=== PATIENT | female | born 1935 | race Hispanic/Latino ===

== ENCOUNTER 2018-05-30 13:11 | Emergency (ER) | payer MEDICARE ==
[~2018-05-30 13:11] MED LIST: AMLO10TA7 PO; DONE10TA36 PO; GABA-529 PO; HUM10VIA6 SQ; HYDR-4154 PO; LEVO137T2 PO; LOSA100T58 PO; PRAV20TA4 PO; PRED5TAB44 PO; SERT25TA5 PO; TRAM-355 PO
[2018-05-30] MEDS ORDERED: TETANUS/DIPHTHERIA TOXOID [ADULT] 0.5 ML VIAL IM ONE (15:41)
== END 2018-05-30 16:19 | disposition home or self-care (01) ==
LOC: EDH 13:11
DX: S61.511A Laceration without foreign body of right wrist, initial encounter (principal); S81.812A Laceration without foreign body, left lower leg, initial encounter; E11.9 Type 2 diabetes mellitus without complications; E78.5 Hyperlipidemia, unspecified; I10 Essential (primary) hypertension; Z79.4 Long term (current) use of insulin; W18.39XA Other fall on same level, initial encounter; Y93.01 Activity, walking, marching and hiking; Y92.098 Other place in other non-institutional residence as the place of occurrence of the external cause; Y99.8 Other external cause status
CPT/HCPCS: 90471; 90714

== ENCOUNTER 2018-11-07 10:52 | Inpatient (IN) | payer MEDICARE ==
[~2018-11-07] VITALS: Ht 162.6 cm; Wt 63.0 kg
[2018-11-07] MEDS ORDERED: SODIUM CHLORIDE 0.9% 1000ML 1,000 ML IV ONE (11:25)
[2018-11-07] MEDS ORDERED: VANCOMYCIN 1GM+NS 250ML 250 ML IV ONE (11:25)
[2018-11-07 11:43] LABS: BASOPHILS % (AUTO) 1.2 % (0.0-5.0); EOSINOPHILS % (AUTO) 5.7 % (0.0-8.0); HEMATOCRIT 24.3 % (36-48); LYMPHOCYTES % (AUTO) 29.7 % (21.0-51.0); MEAN CORPUSCULAR HEMOGLOBIN 30.9 pg (27.0-33.0); MEAN CORPUSCULAR HGB CONC 33.7 g/dL (32.0-36.0); MEAN CORPUSCULAR VOLUME 91.7 fL (79-99); MONOCYTES % (AUTO) 8.1 % (3.0-13.0); NEUTROPHILS % (AUTO) 55.3 % (40.0-77.0); PLATELET COUNT (AUTO) 162 K/uL (130-400); RED BLOOD CELL COUNT(AUTO) 2.65 MIL/uL (4.00-5.50); RED CELL DISTRIBUTION WIDTH 14.4 % (11.0-15.5); WHITE BLOOD COUNT (AUTO) 4.2 K/uL (4.8-10.8)
[2018-11-07 11:52] LABS: CREATININE 3.9 mg/dL (0.5-1.5); POTASSIUM 4.6 mmol/L (3.5-5.1)
[2018-11-07 11:57] LABS: ALBUMIN 2.9 g/dL (3.5-5.0); BILIRUBIN,TOTAL 0.2 mg/dL (0.2-1.0); TOTAL PROTEIN, SERUM 6.1 g/dL (6.0-8.3)
[2018-11-07] MEDS ORDERED: SODIUM CHLORIDE 0.9% 1000ML 1,000 ML IV SCH ×2 (12:15→16:15)
[2018-11-07] MEDS ORDERED: FERR325T29 PO (15:24)
[2018-11-07] MEDS ORDERED: HYDR-4457 PO (15:44)
[2018-11-07] MEDS ORDERED: CYAN250014 PO (15:44)
[2018-11-07] MEDS ORDERED: DICL2100G TP (15:44)
[2018-11-07] MEDS ORDERED: OMEG-62 PO (15:44)
[2018-11-07] MEDS ORDERED: MV-M1TAB46 PO (15:44)
[2018-11-07] MEDS ORDERED: COMB5OS OU (15:54)
[2018-11-07] MEDS ORDERED: BIMA12.5OS OD (15:54)
[2018-11-07] MEDS ORDERED: DORZ10DR19 OS (15:54)
[2018-11-07 16:00] VITALS: BP 163/63
[2018-11-07] MEDS ORDERED: NITROGLYCERIN 0.4 MG SL TAB SL PRN (16:15)
[2018-11-07] MEDS ORDERED: DiphenhydrAMINE HCL 50 MG/ML VIAL IVP PRN (16:15)
[2018-11-07] MEDS ORDERED: DEXTROSE 50%-WATER 50 ML DISP.SYRIN IV PRN (16:15)
[2018-11-07] MEDS ORDERED: DIPHENHYDRAMINE HCL 25 MG CAPSULE PO PRN (16:15)
[2018-11-07] MEDS ORDERED: POTASSIUM CHLORIDE 10% ELIXIR 20 MEQ/15 ML UDCUP PO PRN (16:15)
[2018-11-07] MEDS ORDERED: LACTULOSE 20 GM/30 ML UDCUP PO PRN (16:15)
[2018-11-07] MEDS ORDERED: GLUCAGON 1MG KIT 1 MG ML IM PRN (16:15)
[2018-11-07] MEDS ORDERED: IPRATROPIUM/ALBUTEROL SULFATE 3 ML SOLUTION IH PRN (16:15)
[2018-11-07] MEDS ORDERED: POTASSIUM CHLORIDE 20 MEQ ERTAB PO PRN (16:15)
[2018-11-07] MEDS ORDERED: MAG HYDROX/AL HYDROX/SIMETH ES 30 ML SUSP UDCUP PO PRN (16:15)
[2018-11-07] MEDS ORDERED: ACETAMINOPHEN 325 MG TAB PO PRN ×2 (16:15)
[2018-11-07] MEDS ORDERED: GUAIFENESIN-DM 200/20 MG 10 ML PO PRN (16:15)
[2018-11-07] MEDS ORDERED: ONDANSETRON HCL 4 MG/2 ML VIAL IVP PRN (16:15)
[2018-11-07] MEDS ORDERED: VANCOMYCIN PROTOCOL PER PHARMACY IV SCH (16:30)
[2018-11-07] MEDS: INSULIN R PO SSI SQ SCH ×2 (16:30→21:00)
[2018-11-07] MEDS: ZOSYN 3.375GM+NS 50ML 50 ML IV SCH (17:00)
[2018-11-07] MEDS: LORAZEPAM 2 MG/ML 1 ML VIAL IVP PRN (17:51)
[2018-11-07 20:00] VITALS: BP 158/56
[2018-11-07] MEDS: VANCOMYCIN 500MG+NS 100ML 100 ML IV SCH (21:12)
[2018-11-08] VITALS (7 sets, daily range): BP systolic 146–204; BP diastolic 60–98
[2018-11-08] MEDS: LORAZEPAM 2 MG/ML 1 ML VIAL IVP PRN ×2 (01:25→23:13)
[2018-11-08] MEDS: ZOSYN 3.375GM+NS 50ML 50 ML IV SCH ×2 (04:32→17:02)
[2018-11-08 05:59] LABS: HEMATOCRIT 25.5 % (36-48); MEAN CORPUSCULAR HEMOGLOBIN 30.9 pg (27.0-33.0); MEAN CORPUSCULAR HGB CONC 33.5 g/dL (32.0-36.0); MEAN CORPUSCULAR VOLUME 92.5 fL (79-99); PLATELET COUNT (AUTO) 157 K/uL (130-400); RED BLOOD CELL COUNT(AUTO) 2.75 MIL/uL (4.00-5.50); RED CELL DISTRIBUTION WIDTH 14.6 % (11.0-15.5); WHITE BLOOD COUNT (AUTO) 5.4 K/uL (4.8-10.8)
--- NOTE | 2018-11-08 06:00 | NUR ---
BEHAVIOR Pt required constant monitoring due to restlessness,confused.Pt has mittens to both hands,checked CMs q 2 hrs.Ativan was given last night for agitation.
[2018-11-08 06:06] LABS: CREATININE 3.2 mg/dL (0.5-1.5); POTASSIUM 4.2 mmol/L (3.5-5.1)
[2018-11-08] MEDS: INSULIN R PO SSI SQ SCH ×4 (06:32→21:00)
[2018-11-08] MEDS ORDERED: LABETALOL HCL 5 MG/ML 20ML VIAL IV PRN (08:45)
[2018-11-08] MEDS ORDERED: DOCUSATE SODIUM 100 MG CAP PO PRN (08:45)
[2018-11-08] MEDS: FAMOTIDINE 20MG TAB 20 MG TAB PO SCH (09:35)
[2018-11-08] MEDS: CLONIDINE HCL 0.1 MG TABLET PO PRN ×2 (12:33→20:31)
--- NOTE | 2018-11-08 14:30 | NUR ---
[facility] consult Patient assessed as ordered. Patient with laceration to right leg related to trauma when she hit herself on bed frame at home approx 3 weeks ago. Wound is dry with adherent scab. [facility] recommendations submitted. Report given to patient's nurse, SHEA Beavers. Addendum: 11/08/18 at 1531 by JATINDER FOSS RN/ Amended: Links added.
--- NOTE | 2018-11-08 14:50 | NUR ---
DCP CM met with pt discussed dc plans. Pt is semi-independent prior to admission, lives at home with daughter. Pt has a provider 25hrs/wk and uses a rollator walker. Denies any other equipments/services. Pt feels safe to go back home, daughter able to assist with transportation and needs as necessary. DC plan to home once stable. CM to cont to follow up. Addendum: 11/08/18 at 1452 by JOSELYN KULKARNI LVN CM Amended: Links added.
[2018-11-08] MEDS: SODIUM CHLORIDE 0.9% 1000ML 1,000 ML IV SCH (15:21)
[2018-11-08] MEDS: ZOLPIDEM TARTRATE 5 MG TAB PO PRN ×2 (23:05→23:10)
[2018-11-09] VITALS (7 sets, daily range): BP systolic 166–204; BP diastolic 60–76
[2018-11-09] MEDS: SODIUM CHLORIDE 0.9% 1000ML 1,000 ML IV SCH ×2 (03:13→17:55)
[2018-11-09] MEDS: ZOSYN 3.375GM+NS 50ML 50 ML IV SCH ×2 (05:33→17:43)
[2018-11-09 05:50] LABS: HEMATOCRIT 23.9 % (36-48); MEAN CORPUSCULAR HEMOGLOBIN 31.3 pg (27.0-33.0); MEAN CORPUSCULAR HGB CONC 34.3 g/dL (32.0-36.0); MEAN CORPUSCULAR VOLUME 91.5 fL (79-99); PLATELET COUNT (AUTO) 153 K/uL (130-400); RED BLOOD CELL COUNT(AUTO) 2.61 MIL/uL (4.00-5.50); RED CELL DISTRIBUTION WIDTH 14.5 % (11.0-15.5); WHITE BLOOD COUNT (AUTO) 5.5 K/uL (4.8-10.8)
[2018-11-09 05:58] LABS: CREATININE 2.4 mg/dL (0.5-1.5); POTASSIUM 3.7 mmol/L (3.5-5.1)
[2018-11-09] MEDS: INSULIN R PO SSI SQ SCH ×5 (06:37→20:00)
[2018-11-09] MEDS: FAMOTIDINE 20MG TAB 20 MG TAB PO SCH (08:28)
[2018-11-09] MEDS: FERROUS SULFATE 325 MG TABLET.DR PO SCH ×3 (09:00→19:47)
[2018-11-09] MEDS: LOSARTAN 100 MG TABLET PO SCH (09:00)
[2018-11-09] MEDS: HYDRALAZINE HCL 25 MG TABLET PO SCH (09:00)
--- NOTE | 2018-11-09 10:26 | NUR ---
MEDICATIONS ATTEMPTED TO GIVE PATIENT APRSOLINE,COZAAR, AND FERROUS SULFATE. PATIENT REFUSED MEDICATIONS, SPIT THEM OUT AND TURNED HEAD, PUSHED HAND AWAY. ATTEMPTED NUMEROUS TIMES. PATIENT CONTINUED TO REFUSE.
[2018-11-09] MEDS: LABETALOL HCL 5 MG/ML 20ML VIAL IV PRN ×2 (13:05→19:54)
--- NOTE | 2018-11-09 13:10 | NUR ---
REFUSED MEDICATIONS PATIENT REFUSED TO TAKE MEDICATION FERROUS SULFATE. SHE PUSHED MEDICATION AWAY AND TURNED HEAD. THREE ATTEMPTS WERE MADE TO GET PATIENT TO TAKE MEDS WITH SAME RESULTS.
[2018-11-09] MEDS: CLONIDINE HCL 0.1 MG TABLET PO PRN (15:10)
[2018-11-09] MEDS ORDERED: SODIUM CHLORIDE 0.9% 1000ML 1,000 ML IV ONE (16:45)
[2018-11-09] MEDS: VANCOMYCIN 500MG+NS 100ML 100 ML IV SCH (19:52)
[2018-11-09] MEDS: BRIMONIDINE TARTRATE OU SCH (20:01)
[2018-11-09] MEDS: TIMOLOL OU SCH (20:01)
[2018-11-09] MEDS: LORAZEPAM 2 MG/ML 1 ML VIAL IVP PRN (21:14)
[2018-11-10 00:11] VITALS: BP 158/42
[2018-11-10 04:20] VITALS: BP 159/76
[2018-11-10 04:24] LABS: HEMATOCRIT 26.6 % (36-48); MEAN CORPUSCULAR HEMOGLOBIN 31.5 pg (27.0-33.0); MEAN CORPUSCULAR HGB CONC 33.7 g/dL (32.0-36.0); MEAN CORPUSCULAR VOLUME 93.4 fL (79-99); PLATELET COUNT (AUTO) 141 K/uL (130-400); RED BLOOD CELL COUNT(AUTO) 2.85 MIL/uL (4.00-5.50); RED CELL DISTRIBUTION WIDTH 14.5 % (11.0-15.5); WHITE BLOOD COUNT (AUTO) 7.5 K/uL (4.8-10.8)
[2018-11-10 04:44] LABS: CREATININE 2.3 mg/dL (0.5-1.5); POTASSIUM 3.9 mmol/L (3.5-5.1)
[2018-11-10] MEDS: ZOSYN 3.375GM+NS 50ML 50 ML IV SCH ×2 (05:10→17:06)
[2018-11-10] MEDS: INSULIN R PO SSI SQ SCH ×4 (05:45→20:24)
--- NOTE | 2018-11-10 07:30 | NUR ---
Dr. Vogt Rounded Seen pt. and ordered for GI consult and decrease Ativan from 1mg to 0.5 mg IV q4h prn for anxiety/agitation. Carried out.
[2018-11-10 08:20] VITALS: BP 193/68
[2018-11-10] MEDS: LOSARTAN 100 MG TABLET PO SCH (09:16)
[2018-11-10] MEDS: FERROUS SULFATE 325 MG TABLET.DR PO SCH ×3 (09:16→20:28)
[2018-11-10] MEDS: FAMOTIDINE 20MG TAB 20 MG TAB PO SCH (09:16)
[2018-11-10] MEDS: HYDRALAZINE HCL 25 MG TABLET PO SCH (09:17)
--- NOTE | 2018-11-10 09:30 | NUR ---
RIGHT EYE BLIND Addendum: 11/10/18 at 2133 by AMBER NELSON RN RN Amended: Links added.
[2018-11-10] MEDS: LORAZEPAM 2 MG/ML 1 ML VIAL IVP PRN (10:27)
[2018-11-10 11:34] VITALS: BP_SYST 161
[2018-11-10] MEDS: CLONIDINE HCL 0.1 MG TABLET PO PRN (17:03)
[2018-11-10 17:10] VITALS: BP 205/80
[2018-11-10] MEDS: LABETALOL HCL 5 MG/ML 20ML VIAL IV PRN (20:23)
[2018-11-10] MEDS: TIMOLOL OU SCH (20:29)
[2018-11-10] MEDS: BRIMONIDINE TARTRATE OU SCH (20:29)
[2018-11-10 20:47] VITALS: BP 197/87
[2018-11-11] VITALS (21 sets, daily range): BP systolic 136–212; BP diastolic 46–101
[2018-11-11] MEDS: LORAZEPAM 2 MG/ML 1 ML VIAL IVP PRN (01:35)
[2018-11-11 04:15] LABS: HEMATOCRIT 24.4 % (36-48); MEAN CORPUSCULAR HEMOGLOBIN 31.1 pg (27.0-33.0); MEAN CORPUSCULAR HGB CONC 33.7 g/dL (32.0-36.0); MEAN CORPUSCULAR VOLUME 92.4 fL (79-99); PLATELET COUNT (AUTO) 145 K/uL (130-400); RED BLOOD CELL COUNT(AUTO) 2.64 MIL/uL (4.00-5.50); RED CELL DISTRIBUTION WIDTH 14.4 % (11.0-15.5); WHITE BLOOD COUNT (AUTO) 7.8 K/uL (4.8-10.8)
[2018-11-11 04:20] LABS: POTASSIUM 3.8 mmol/L (3.5-5.1)
[2018-11-11] MEDS: ZOSYN 3.375GM+NS 50ML 50 ML IV SCH ×2 (05:10→20:10)
[2018-11-11] MEDS ORDERED: PROPOFOL 10 MG/ML 20ML VIAL IV ONE (06:33)
[2018-11-11] MEDS ORDERED: GLYCOPYRROLATE 0.2 MG/ML 5 ML VIAL ONE (06:34)
[2018-11-11] MEDS ORDERED: LIDOCAINE HCL 1% 20 ML VIAL ONE (06:34)
--- NOTE | 2018-11-11 07:29 | NUR ---
S/P EGD REPORT RECEIVED FROM NAJMA LLOYD RN FROM . NEW ORDERS RECEIVED AND CARRIED OUT. VITALS STABLE. PATIENT TO RETURN TO ROOM. Addendum: 11/11/18 at 0732 by CLARITA MALDONADO RN RN Amended: Links added.
[2018-11-11] MEDS: INSULIN R PO SSI SQ SCH ×4 (07:30→20:08)
--- NOTE | 2018-11-11 07:40 | NUR ---
RECEIVED PATIENT DAUGHTER AT BEDSIDE VS 154/64, P67, R 22 . O2 @ 2 LITERS NC, IV INFUSING AT 75 CC/HR . WILL CONTINUE TO MONITOR
--- NOTE | 2018-11-11 08:00 | NUR ---
DR COVARURBIAS ROUNDED ON PATIENT ORDERS TO RE-CONSULT GI FOR POSSIBLE COLONOSCOPY . CONSULT PLACED FOR DR MONTOYA
--- NOTE | 2018-11-11 08:45 | NUR ---
BLIND IN RIGHT EYE Addendum: 11/11/18 at 1616 by AMBER NELSON RN RN Amended: Links added.
[2018-11-11] MEDS: FERROUS SULFATE 325 MG TABLET.DR PO SCH ×3 (09:00→20:08)
[2018-11-11] MEDS: FAMOTIDINE 20MG TAB 20 MG TAB PO SCH (09:39)
[2018-11-11] MEDS: HYDRALAZINE HCL 25 MG TABLET PO SCH (09:39)
[2018-11-11] MEDS: LOSARTAN 100 MG TABLET PO SCH (09:39)
--- NOTE | 2018-11-11 16:00 | NUR ---
DR MONTOYA CONSULTED FOR POSSIBLE COLONOSCOPY PER DR COVARRUBIAS REQUEST. DR MONTOYA CALLED BACK AND SIAD THAT THE PATIENT HAD DESAT DURING EGD SO HE SAID THAT FOLLOW-UP IN ONE WEEK AND CONTINUE TO MONITOR THE PATIENT AND PLACE WITH PROTOXIN 40MG PO DAILY NO ASPIRIN, IBUPROFEN, NAPROXEN, OR OTHER NON STEROIDAL ANTI- INFLAMMATORY.
[2018-11-11] MEDS: VANCOMYCIN 500MG+NS 100ML 100 ML IV SCH (20:07)
[2018-11-11] MEDS: BRIMONIDINE TARTRATE OU SCH (20:08)
[2018-11-11] MEDS: LABETALOL HCL 5 MG/ML 20ML VIAL IV PRN (20:08)
[2018-11-11] MEDS: TIMOLOL OU SCH (20:08)
[2018-11-12] VITALS (7 sets, daily range): BP systolic 103–200; BP diastolic 68–91
[2018-11-12] MEDS: ZOSYN 3.375GM+NS 50ML 50 ML IV SCH ×2 (03:33→17:29)
[2018-11-12] MEDS: LABETALOL HCL 5 MG/ML 20ML VIAL IV PRN ×2 (03:40→23:16)
[2018-11-12 05:26] LABS: HEMATOCRIT 22.7 % (36-48); MEAN CORPUSCULAR HEMOGLOBIN 31.1 pg (27.0-33.0); MEAN CORPUSCULAR HGB CONC 33.1 g/dL (32.0-36.0); NUCLEATED RED BLOOD CELLS 0.2 % (0.0-0.19); PLATELET COUNT (AUTO) 119 K/uL (130-400); RED BLOOD CELL COUNT(AUTO) 2.42 MIL/uL (4.00-5.50); RED CELL DISTRIBUTION WIDTH 14.7 % (11.0-15.5); WHITE BLOOD COUNT (AUTO) 7.1 K/uL (4.8-10.8)
[2018-11-12] MEDS: INSULIN R PO SSI SQ SCH ×4 (06:00→21:46)
[2018-11-12 06:18] LABS: CREATININE 2.1 mg/dL (0.5-1.5); POTASSIUM 3.6 mmol/L (3.5-5.1)
[2018-11-12] MEDS: IPRATROPIUM/ALBUTEROL SULFATE 3 ML SOLUTION IH PRN ×2 (07:01→18:24)
--- NOTE | 2018-11-12 09:45 | NUR ---
HX OF BLINDNESS IN RIGHT EYE Addendum: 11/12/18 at 1724 by AMBER NELSON RN RN Amended: Links added.
[2018-11-12] MEDS: FAMOTIDINE 20MG TAB 20 MG TAB PO SCH (12:01)
[2018-11-12] MEDS: HYDRALAZINE HCL 25 MG TABLET PO SCH (12:01)
[2018-11-12] MEDS: LOSARTAN 100 MG TABLET PO SCH (12:10)
[2018-11-12] MEDS: FERROUS SULFATE 325 MG TABLET.DR PO SCH ×3 (12:10→21:00)
[2018-11-12] MEDS: BRIMONIDINE TARTRATE OU SCH (21:00)
[2018-11-12] MEDS: TIMOLOL OU SCH (21:00)
[2018-11-13] VITALS (9 sets, daily range): BP systolic 157–229; BP diastolic 66–133
[2018-11-13] MEDS: LORAZEPAM 2 MG/ML 1 ML VIAL IVP PRN ×3 (00:43→16:33)
[2018-11-13] MEDS: ZOSYN 3.375GM+NS 50ML 50 ML IV SCH ×2 (04:52→16:26)
[2018-11-13] MEDS: INSULIN R PO SSI SQ SCH (05:46)
[2018-11-13 06:32] LABS: HEMATOCRIT 23.3 % (36-48); MEAN CORPUSCULAR HEMOGLOBIN 30.8 pg (27.0-33.0); MEAN CORPUSCULAR HGB CONC 33.5 g/dL (32.0-36.0); MEAN CORPUSCULAR VOLUME 91.9 fL (79-99); PLATELET COUNT (AUTO) 140 K/uL (130-400); RED BLOOD CELL COUNT(AUTO) 2.54 MIL/uL (4.00-5.50); RED CELL DISTRIBUTION WIDTH 14.6 % (11.0-15.5); WHITE BLOOD COUNT (AUTO) 7.3 K/uL (4.8-10.8)
[2018-11-13 06:43] LABS: CREATININE 2.1 mg/dL (0.5-1.5); POTASSIUM 3.3 mmol/L (3.5-5.1)
[2018-11-13] MEDS: IPRATROPIUM/ALBUTEROL SULFATE 3 ML SOLUTION IH PRN ×3 (06:54→22:11)
[2018-11-13] MEDS ORDERED: PANTOPRAZOLE SODIUM 40 MG TABLET.DR PO SCH (09:00)
[2018-11-13] MEDS: FERROUS SULFATE 325 MG TABLET.DR PO SCH ×3 (09:23→21:00)
[2018-11-13] MEDS: HYDRALAZINE HCL 25 MG TABLET PO SCH (09:23)
[2018-11-13] MEDS: LOSARTAN 100 MG TABLET PO SCH (09:23)
[2018-11-13] MEDS: INSULIN HUMULIN R 100 UNIT/ML 3ML SQ SCH ×3 (11:30→21:00)
[2018-11-13] MEDS: LABETALOL HCL 5 MG/ML 20ML VIAL IV PRN ×2 (11:41→17:16)
--- NOTE | 2018-11-13 12:28 | NUR ---
CM Note: Updated POC CM met with pt and daughter, discussed possible short term rehab placement. Daughter is agreeable for [facility]Facility where Dr. Vogt rounds if MD recommends, PHILLIP signed. Informed daughter will call Dr Vogt for POC. Spoke to Dr Vogt, discussed regarding dcp for pt. At this time stated he wanted to see the result of bleeding scan first, it is done but result is pending. Also informed pt is still very weak, stated it is because of Anemia. Informed MD daughter is agreeable for short term placement if MD recommends. For now per Dr Vogt pt not ready, no SNF placement for now. Will wait until pt is stable. Updated daughter of poc. Primary nurse aware. CM to cont to follow.
[2018-11-13] MEDS ORDERED: LABETALOL HCL 5 MG/ML 20ML VIAL IV SCH (13:15)
[2018-11-13] MEDS: POTASSIUM CHLORIDE 20MEQ/100ML 100 ML IV PRN (13:40)
[2018-11-13] MEDS: LIDOCAINE HCL-MPF 1% 2ML VIAL IJ PRN (13:41)
--- NOTE | 2018-11-13 14:41 | NUR ---
RD Notification Pt with decreased appetite, requesting nutritional supplement. RD rec to add Glucerna TID with meals. RD also rec to add appetite stimulant as medically feasible. Pt LBM 11/12/18, [place]. GI bleeding as noted in progress note. Pt monitored labs: Na 149, Cl 117, K 3.3, CO2 17, BUN 35, Cr 2.1, GFR 24, Ca 8.4, Alb 2.9. RD to continue to monitor. Please notify RD as additional nutrition concerns arise. Thank you. Addendum: 11/13/18 at [address] RD Amended: Links added.
[2018-11-13] MEDS: HYDRALAZINE HCL 20 MG/ML VIAL IV PRN ×2 (16:26→23:32)
--- NOTE | 2018-11-13 16:30 | NUR ---
had notified md regarding bp beng uncontrolled with sbp up to 200/130 at times when patient anxious and labatolol given as well. m\new order was given to add hydralazine prn . bp at 190/70 range hr 58. will cont to monitor.
--- NOTE | 2018-11-13 18:30 | NUR ---
bp down to 162/81 hr 58 after hydralazine ..patient with wheezing ans sob .02 sat at 95 percent .per rt recommend abg. abg were drawn ,no out of range results . informed md . per md keep head of bed at 60 degrees. will cont to monitor
[2018-11-13 18:52] LABS: ABG BASE EXCESS -5.6 mmol/L (-2.0-3.0); ABG HCO3 17.7 mmol/L (21.0-28.0); ABG OXYGEN SATURATION 97.7 % (95.0-99.0); ABG PCO2 29 mmHg (32-45)
[2018-11-13] MEDS ORDERED: PANTOPRAZOLE 40 MG/VIAL IV SCH (20:00)
[2018-11-13] MEDS: TIMOLOL OU SCH (20:14)
[2018-11-13] MEDS: BRIMONIDINE TARTRATE OU SCH (20:14)
[2018-11-13] MEDS: VANCOMYCIN 1GM+NS 250ML 250 ML IV SCH (23:23)
[2018-11-14] VITALS (7 sets, daily range): BP systolic 155–197; BP diastolic 63–76
--- NOTE | 2018-11-14 01:15 | NUR ---
B/P decreased to 160/70, P 80 after administering Hydralazine IV earlier at 2400. Will continue to monitor.
[2018-11-14 04:19] LABS: HEMATOCRIT 24.3 % (36-48); MEAN CORPUSCULAR HEMOGLOBIN 30.3 pg (27.0-33.0); MEAN CORPUSCULAR HGB CONC 32.7 g/dL (32.0-36.0); MEAN CORPUSCULAR VOLUME 92.8 fL (79-99); NUCLEATED RED BLOOD CELLS 0.1 % (0.0-0.19); PLATELET COUNT (AUTO) 141 K/uL (130-400); RED BLOOD CELL COUNT(AUTO) 2.61 MIL/uL (4.00-5.50); RED CELL DISTRIBUTION WIDTH 14.4 % (11.0-15.5); WHITE BLOOD COUNT (AUTO) 6.4 K/uL (4.8-10.8)
[2018-11-14 04:30] LABS: CREATININE 2.2 mg/dL (0.5-1.5); POTASSIUM 3.7 mmol/L (3.5-5.1)
[2018-11-14] MEDS: ZOSYN 3.375GM+NS 50ML 50 ML IV SCH (04:59)
[2018-11-14] MEDS: HYDRALAZINE HCL 20 MG/ML VIAL IV PRN ×3 (05:00→22:23)
[2018-11-14] MEDS: INSULIN HUMULIN R 100 UNIT/ML 3ML SQ SCH ×3 (05:06→21:39)
[2018-11-14] MEDS: IPRATROPIUM/ALBUTEROL SULFATE 3 ML SOLUTION IH PRN ×3 (06:25→21:23)
--- NOTE | 2018-11-14 06:40 | NUR ---
B/P decreased to 155/66, P 86 after administering Hydralazine IV earlier at 0500. Will continue to monitor.
[2018-11-14] MEDS ORDERED: DEXTROSE 5 %-0.45 % NACL 1,000 ML IV SCH (07:00)
[2018-11-14] MEDS ORDERED: PANTOPRAZOLE SODIUM 40 MG TABLET.DR PO SCH (07:30)
[2018-11-14] MEDS: LOSARTAN 100 MG TABLET PO SCH (08:50)
[2018-11-14] MEDS: FERROUS SULFATE 325 MG TABLET.DR PO SCH ×2 (09:00→20:34)
[2018-11-14] MEDS: CLONIDINE HCL 0.1 MG TABLET PO PRN (09:00)
[2018-11-14] MEDS: HYDRALAZINE HCL 25 MG TABLET PO SCH (11:52)
[2018-11-14] MEDS: LABETALOL HCL 5 MG/ML 20ML VIAL IV PRN (11:54)
--- NOTE | 2018-11-14 12:28 | NUR ---
HOLD BEDSIDE DYSPHAGIA EVALUATION. SOLAR PROJECT COORDINATION SPECIALIST ATTEMPTED TO EVALUATE PATIENT. PATIENT VERY CONFUSED AND HYPERSENSITIVE TO TOUCH. PATIENT REFUSING TO OPEN HER EYES AND PARTICIPATE IN EVALUATION. SOLAR PROJECT COORDINATION SPECIALIST WILL FOLLOW UP WITH PATIENT TO COMPLETE EVALUATION. Addendum: 11/14/[address] [facility] Amended: Links added.
--- NOTE | 2018-11-14 14:40 | NUR ---
Patient unable to ambulate; Physical therapy exercising patient, sat patient on the side of bed for approx. 6 min. Patient drowsy and week. Addendum: 11/14/18 at [address] Amended: Links added.
--- NOTE | 2018-11-14 16:14 | NUR ---
PER PRIMARY OK TO DISCHARGE AFTER 2 DECHO .PATIENT CAN FOLLOW UP OUPT FOR RESULTS WITH PRIMARY . INFORMED FAMILY AND PATIENT . BOTH VERBILIZED UNDERSTANDING
[2018-11-14] MEDS: BRIMONIDINE TARTRATE OU SCH (19:23)
[2018-11-14] MEDS: TIMOLOL OU SCH (19:23)
[2018-11-14] MEDS ORDERED: DEXTROSE 5 %-0.45 % NACL 1,000 ML IV ONE (21:10)
[2018-11-15] VITALS (8 sets, daily range): BP systolic 146–196; BP diastolic 42–94
[2018-11-15] MEDS ORDERED: ACETAMINOPHEN 650 MG SUPPOSITORY RC ONE (03:28)
[2018-11-15] MEDS ORDERED: ACETAMINOPHEN 650 MG SUPPOSITORY RC PRN (03:30)
[2018-11-15 04:57] LABS: HEMATOCRIT 25.6 % (36-48); MEAN CORPUSCULAR HEMOGLOBIN 30.3 pg (27.0-33.0); MEAN CORPUSCULAR VOLUME 91.8 fL (79-99); PLATELET COUNT (AUTO) 162 K/uL (130-400); RED BLOOD CELL COUNT(AUTO) 2.79 MIL/uL (4.00-5.50); RED CELL DISTRIBUTION WIDTH 14.9 % (11.0-15.5)
[2018-11-15 05:11] LABS: CREATININE 2.4 mg/dL (0.5-1.5); POTASSIUM 3.2 mmol/L (3.5-5.1)
[2018-11-15] MEDS: ZOSYN 3.375GM+NS 50ML 50 ML IV SCH ×2 (05:41→17:32)
[2018-11-15] MEDS: INSULIN HUMULIN R 100 UNIT/ML 3ML SQ SCH ×4 (06:08→20:09)
[2018-11-15] MEDS: IPRATROPIUM/ALBUTEROL SULFATE 3 ML SOLUTION IH PRN ×2 (06:30→18:53)
[2018-11-15] MEDS: HYDRALAZINE HCL 25 MG TABLET PO SCH (08:35)
[2018-11-15] MEDS: LOSARTAN 100 MG TABLET PO SCH (08:35)
[2018-11-15] MEDS: CLONIDINE HCL 0.1 MG TABLET PO PRN (08:38)
[2018-11-15] MEDS: LIDOCAINE HCL-MPF 1% 2ML VIAL IJ PRN ×2 (08:44→17:32)
[2018-11-15] MEDS: POTASSIUM CHLORIDE 20MEQ/100ML 100 ML IV PRN ×2 (08:45→17:32)
[2018-11-15] MEDS: FERROUS SULFATE 325 MG TABLET.DR PO SCH ×3 (08:47→21:00)
[2018-11-15] MEDS ORDERED: DEXTROSE 5 %-0.45 % NACL 1,000 ML IV SCH (10:00)
--- NOTE | 2018-11-15 10:00 | NUR ---
CATE Note: [facility] pending acceptance CM met with pt and family, family requested SNF placement, [facility] signed for #1 [facility]. Faxed order, clinicals, and pasrr, confirmation received. Spoke to Nicole zuniga/[facility] will come eval pt. Aware BP being controlled at this time, per Dr Vogt possibly dc for tomorrow once BP controlled. Pt pending acceptance. Primary nurse aware. CM to cont to follow up.
--- NOTE | 2018-11-15 11:56 | NUR ---
DYSPHAGIA EVALUATION COMPLETED. -S/S OF ASPIRATION OBSERVED. RECOMMEND MECHANICAL SOFT-CHOPPED AND THIN LIQUIDS; PILLS CRUSHED WITH APPLESAUCE. Addendum: 11/15/[address] [facility] Amended: Links added.
--- NOTE | 2018-11-15 16:00 | NUR ---
informed md regarding medications for [facility] on which to resume .pt currently on abx ,and elevated bp . per md will look at medications tomorrow
--- NOTE | 2018-11-15 17:59 | NUR ---
REPORT GIVEN TO LAMONT ,SPOKE WITH PRINCE . CALLED TO EMS FOR TRANSPORT
--- NOTE | 2018-11-15 18:03 | NUR ---
PREVIOUS NOTE FOR ANOTHER NOETENT
--- NOTE | 2018-11-15 19:23 | NUR ---
CATE Note: [facility] acceptance CM spoke to Nicole disla. pt has acceptance. Primary nurse aware. CM to cont to follow up.
[2018-11-15] MEDS: BRIMONIDINE TARTRATE OU SCH (20:08)
[2018-11-15] MEDS: TIMOLOL OU SCH (20:08)
[2018-11-15] MEDS: VANCOMYCIN 1GM+NS 250ML 250 ML IV SCH (21:30)
[2018-11-16] MEDS: HYDRALAZINE HCL 20 MG/ML VIAL IV PRN (00:13)
[2018-11-16 04:11] VITALS: BP 164/73
[2018-11-16] MEDS: ZOSYN 3.375GM+NS 50ML 50 ML IV SCH (05:38)
[2018-11-16] MEDS: INSULIN HUMULIN R 100 UNIT/ML 3ML SQ SCH ×3 (05:50→16:30)
[2018-11-16] MEDS: IPRATROPIUM/ALBUTEROL SULFATE 3 ML SOLUTION IH PRN (06:47)
[2018-11-16 08:00] VITALS: BP 172/77
[2018-11-16 08:21] LABS: HEMATOCRIT 26.7 % (36-48); MEAN CORPUSCULAR HEMOGLOBIN 30.4 pg (27.0-33.0); MEAN CORPUSCULAR HGB CONC 33.3 g/dL (32.0-36.0); MEAN CORPUSCULAR VOLUME 91.2 fL (79-99); NUCLEATED RED BLOOD CELLS 0.1 % (0.0-0.19); PLATELET COUNT (AUTO) 162 K/uL (130-400); RED BLOOD CELL COUNT(AUTO) 2.92 MIL/uL (4.00-5.50); RED CELL DISTRIBUTION WIDTH 14.5 % (11.0-15.5); WHITE BLOOD COUNT (AUTO) 6.8 K/uL (4.8-10.8)
[2018-11-16 08:27] LABS: CREATININE 2.1 mg/dL (0.5-1.5); POTASSIUM 3.5 mmol/L (3.5-5.1)
[2018-11-16] MEDS: FERROUS SULFATE 325 MG TABLET.DR PO SCH ×2 (09:17→17:26)
[2018-11-16] MEDS: HYDRALAZINE HCL 25 MG TABLET PO SCH (09:17)
[2018-11-16] MEDS: LOSARTAN 100 MG TABLET PO SCH (09:17)
[2018-11-16 12:00] VITALS: BP 172/77
--- NOTE | 2018-11-16 14:16 | NUR ---
RD Follow up note Pt with poor PO intake >3days. Pt consumes Glucerna TID and beverages, no solids, however this has been normal diet for the past few years as per daughter and SALES SERVICE SUPERVISOR. Low BMI (23.9) for age, however no noted wt loss. Pt consumed 25% lunch today as per SALES SERVICE SUPERVISOR. Moderate Protein-calorie malnutrition risk (Alb 2.9); Rec to add 30mL ProMod BID. Pt LBM 11/15/18. Pt monitored labs: CO2 19, BUN 31, Cr 2.1, GFr 24, Glu 158, Ca 7.3, Alb 2.9. RD to continue to monitor. Please notify RD as additional nutrition concerns arise. Thank you. Addendum: 11/16/18 at [address] RD Amended: Links added.
[2018-11-16 16:00] VITALS: BP 192/81
[2018-11-16 17:30] VITALS: BP 170/72
[2018-11-16] MEDS: CLONIDINE HCL 0.1 MG TABLET PO PRN (17:30)
--- NOTE | 2018-11-16 19:34 | NUR ---
THANH MAXWELL HERE PATIENT AAOX1, NO DISTRESS, FAMILY AWARE OF TRANSFER DAUGHTER DA AGRAWAL. IV LEFT SECURED WELL WITH TAPE NO INFILTRATION, PATENT, WILL RECEIVE IV ABTS AT [facility]. PICTURE TAKEN TO RIGHT LE AND CHANGED DRESSING. PATIENT WILL CONTINUE CARE AT [facility].
== END 2018-11-16 19:30 | DRG 602 ==
LOC: EDH 10:52 → EDHIP 11:57 → 3AH 15:04
PROVIDERS: ADMIT Family Medicine; ATTEND Family Medicine
PROC: 0DJ08ZZ Inspection of Upper Intestinal Tract, Via Natural or Artificial Opening Endoscopic (ICD-10-PCS; principal; 2018-11-11)
DX: L03.115 Cellulitis of right lower limb (principal); K29.51 Unspecified chronic gastritis with bleeding; N17.9 Acute kidney failure, unspecified; E87.0 Hyperosmolality and hypernatremia; N18.9 Chronic kidney disease, unspecified; E11.22 Type 2 diabetes mellitus with diabetic chronic kidney disease; I12.9 Hypertensive chronic kidney disease with stage 1 through stage 4 chronic kidney disease, or unspecified chronic kidney disease; E86.0 Dehydration; F03.90 Unspecified dementia, unspecified severity, without behavioral disturbance, psychotic disturbance, mood disturbance, and anxiety; R19.5 Other fecal abnormalities; E78.5 Hyperlipidemia, unspecified; M19.90 Unspecified osteoarthritis, unspecified site; Z91.19 Patient's noncompliance with other medical treatment and regimen
CPT/HCPCS: 36415; 36600; 43235; 78278; 80048; 80053; 80202; 82270; 82803; 82948; 85025; 85027; 87070; 87076; 92610; 93971; 94640; 94664; 94760; 97039; A9512; C9113; G0378; J0360; J1200; J1815; J2060; J2543; J2704; J3370; J3480; J3490; J7030; J7042; J7070